=== PATIENT | male | born 1990 | race Two or more races ===

== ENCOUNTER 2024-07-02 10:30 | Emergency (ER) | payer OTHER ==
[~2024-07-02] VITALS: Ht 175.3 cm; Wt 77.1 kg
[2024-07-02] MEDS ORDERED: HYDROCODONE/APAP 5/325MG TABLET ONE (11:01)
[2024-07-02] MEDS: HYDROCODONE/APAP 5/325MG TABLET PO ONE (11:03)
[2024-07-02 14:46] VITALS: BP 118/72; TEMP 98.4; O2SAT 98
== END 2024-07-02 13:00 | disposition home or self-care (01) ==
LOC: ER 10:35
DX: S61.211A Laceration without foreign body of left index finger without damage to nail, initial encounter (principal); F17.200 Nicotine dependence, unspecified, uncomplicated; W29.8XXA Contact with other powered hand tools and household machinery, initial encounter; Y93.89 Activity, other specified; Y92.89 Other specified places as the place of occurrence of the external cause; Y99.8 Other external cause status
CPT/HCPCS: 73130-TC